=== PATIENT | female | born 1965 | race Caucasian/White ===

== ENCOUNTER 2018-05-14 09:41 | Emergency (ER) | payer OTHER ==
--- OUTSIDE RECORDS SUMMARY | 2018-05-14 09:43 | XMS REPORT | Clinical Summary ---
:1965 Author Organization [facility] Address [address] [place] [address] Care Team Providers Name Role Phone Nicholas Cuadra MD Primary Care Provider Allergies Active Allergy Reactions Severity Noted Date Comments Levofloxacin Other (See Comments) 07/06/2017 Eye swelling Current Medications Prescription Sig. Disp. Refills Start Date End Date Status REXULTI 1 mg tablet 03/03/2018 Active tablet levothyroxine (SYNTHROID, Take 100 mcg by Active LEVOXYL) 100 mcg tablet mouth daily. desvenlafaxine (PRISTIQ) Take 100 mg by Active 100 MG 24 hr tablet mouth daily. desvenlafaxine (PRISTIQ) Take 50 mg by Active 50 MG 24 hr tablet mouth daily. estrogens,conj/bazedoxife Take by mouth. Active ne (DUAVEE ORAL) ANALPRAM-HC 2.5-1 % Insert into the 30 g 1 07/06/2017 08/05/2017 rectal cream rectum 3 (three) times a day for 30 days. Active Problems Problem Noted Date Family history of heart disease 03/05/2018 SOB (shortness of breath) 03/05/2018 Abnormal EKG 03/05/2018 Hyperlipidemia 03/05/2018 Encounters Date Type Specialty Care Team Description 05/13/2018 Emergency Emergency Medicine Chani Shea Benzocaine adverse reaction, initial encounter (Primary Dx); MD Dain Anxiety 03/22/2018 Telephone Cardiology Bay Castillo MA Results (nuclear stress test) 03/21/2018 Orders Only Cardiology Adrianna, Family history of heart disease; SHANI Ellington Hyperlipidemia, unspecified hyperlipidemia type; SOB (shortness of breath); Abnormal EKG 03/15/2018 Telephone Cardiology Bay Castillo MA Results (calcium score) 03/12/2018 Hospital Encounter Procedural Deniz Lai Family history of heart disease; Cardiology MD Shefali Hyperlipidemia, unspecified hyperlipidemia type; SOB (shortness of breath); Abnormal EKG 03/05/2018 Office Visit Cardiology Deniz Lai SOB (shortness of breath) ( Primary Dx); MD Shefali Family history of heart disease; Hyperlipidemia, unspecified hyperlipidemia type; Abnormal EKG 07/06/2017 Office Visit General Surgery [place], Internal hemorrhoids without complication (Primary Dx); Mehreen Chi MD Thrombosed external hemorrhoid after 05/13/2017 Social History Tobacco Use Types Packs/Day Years Used Date Never Smoker Smokeless Tobacco: Never Used Alcohol Use Drinks/Week oz/Week Comments No Sex Assigned at Date Recorded Not on file Last Filed Vital Signs Vital Sign Reading Time Taken Blood Pressure 102/69 05/13/2018 12:51 PM CDT Pulse 71 05/13/2018 12:51 PM CDT Temperature 36.8 C (98.2 F) 05/13/2018 12:51 PM CDT Respiratory Rate 20 05/13/2018 12:51 PM CDT Oxygen Saturation 100% 05/13/2018 12:51 PM CDT Inhaled Oxygen Concentration - - Weight 74.8 kg (165 lb) 03/05/2018 11:10 AM CDT Height 162.6 cm (5' 4") 05/13/2018 12:47 PM CDT Body Mass Index 28.32 03/05/2018 11:10 AM CDT Plan of Treatment Health Maintenance Due Date Last Done Comments CERVICAL CANCER SCREENING 02/23/1985 BREAST CANCER SCREENING 02/23/2014 COLON CANCER SCREENING 02/23/2014 SHINGRIX VACCINE (#1) 02/23/2014 INFLUENZA VACCINE 05/08/2018 Procedures Procedure Name Priority Date/Time Associated Diagnosis Comments ECG 12-LEAD STAT 05/13/2018 1:44 Results for this PM CDT procedure are in the results section. URINE CULTURE STAT 05/13/2018 1:43 Results for this PM CDT procedure are in the results section. ESTIMATED GFR STAT 05/13/2018 1:34 Results for this PM CDT procedure are in the results section. URINALYSIS SCREEN AND STAT 05/13/2018 1:34 Results for this MICROSCOPY, WITH PM CDT procedure are in REFLEX TO CULTURE the results section. URINE DRUGS OF ABUSE STAT 05/13/2018 1:34 Results for this SCREEN PM CDT procedure are in the results section. SALICYLATE LEVEL STAT 05/13/2018 1:34 Results for this PM CDT procedure are in the results section. ACETAMINOPHEN LEVEL STAT 05/13/2018 1:34 Results for this PM CDT procedure are in the results section. ALCOHOL LEVEL, BLOOD STAT 05/13/2018 1:34 Results for this PM CDT procedure are in the results section. T4, FREE STAT 05/13/2018 1:34 Results for this PM CDT procedure are in the results section. THYROID STIMULATING STAT 05/13/2018 1:34 Results for this HORMONE PM CDT procedure are in the results section. COMPREHENSIVE STAT 05/13/2018 1:34 Results for this METABOLIC PANEL PM CDT procedure are in the results section. HC COMPLETE BLD COUNT STAT 05/13/2018 1:34 Results for this W/AUTO DIFF PM CDT procedure are in the results section. TROPONIN Timed 05/13/2018 1:34 Results for this PM CDT procedure are in the results section. CT CARDIAC CALCIUM Routine 03/12/2018 1:56 Family history of Results for this SCORE PM CDT heart disease procedure are in Hyperlipidemia, the results unspecified section. hyperlipidemia type SOB (shortness of breath) Abnormal EKG ECG 12-LEAD Routine 03/05/2018 10:17 Family history of Results for this AM CDT heart disease procedure are in Hyperlipidemia, the results unspecified section. hyperlipidemia type after 05/13/2017 Results ECG 12 lead (05/13/2018 1:44 PM)Only the most recent of2 resultswithin the time period is included. Ventricular rate 67 [facility] Atrial rate 67 [facility] TN interval 166 [facility] QRSD interval 74 [facility] QT interval 408 [facility] QTC interval 431 [facility] P axis 1 31 [facility] QRS axis 1 59 [facility] T wave axis 57 [facility] EKG impression Normal sinus rhythm-Normal ECG-In automated [facility] MUSE comparison with ECG of 05-MAR-2018 10:17,-No significant change was found- Performing Organization Address City/State/Zipcode Phone Number [facility] MUSE [address] [place] [address] Urine culture (05/13/2018 1:43 PM) Urine culture SEE COMMENTComment: Bacteriuria [facility] DEPARTMENT OF PATHOLOGY screen negative. AND GENOMIC MEDICINE Performing Organization Address City/[facility] Phone Number [facility] DEPARTMENT OF PATHOLOGY AND [address], [place] [id number] [place] [address] Urinalysis screen and microscopy, with reflex to culture (05/13/2018 1:34 PM) Specimen site Clean catch [facility] DEPARTMENT OF PATHOLOGY AND GENOMIC MEDICINE Color, UA Straw [facility] DEPARTMENT OF PATHOLOGY AND GENOMIC MEDICINE Appearance, UA Clear [facility] DEPARTMENT OF PATHOLOGY AND GENOMIC MEDICINE Specific gravity, UA 1.006 1.001 - 1.035 [facility] DEPARTMENT OF PATHOLOGY AND GENOMIC MEDICINE pH, UA 7.0 5.0 - 8.5 [facility] DEPARTMENT OF PATHOLOGY AND GENOMIC MEDICINE Protein, UA Negative Negative [facility] DEPARTMENT OF PATHOLOGY AND GENOMIC MEDICINE Glucose, UA Negative Negative [facility] DEPARTMENT OF PATHOLOGY AND GENOMIC MEDICINE Ketones, UA Negative Negative [facility] DEPARTMENT OF PATHOLOGY AND GENOMIC MEDICINE Bilirubin, UA Negative Negative [facility] DEPARTMENT OF PATHOLOGY AND GENOMIC MEDICINE Blood, UA Negative Negative [facility] DEPARTMENT OF PATHOLOGY AND GENOMIC MEDICINE Nitrite, UA Negative Negative [facility] DEPARTMENT OF PATHOLOGY AND GENOMIC MEDICINE Urobilinogen, UA <2.0 <2.0 [facility] DEPARTMENT OF PATHOLOGY AND GENOMIC MEDICINE Leukocyte esterase, UA Negative Negative [facility] DEPARTMENT OF PATHOLOGY AND GENOMIC MEDICINE Epithelial cells, UA <1 /HPF [facility] DEPARTMENT OF PATHOLOGY AND GENOMIC MEDICINE WBC, UA None seen 0 - 4 /HPF [facility] DEPARTMENT OF PATHOLOGY AND GENOMIC MEDICINE RBC, UA None seen 0 - 5 /HPF [facility] DEPARTMENT OF PATHOLOGY AND GENOMIC MEDICINE Bacteria, UA None seen None seen [facility] DEPARTMENT OF PATHOLOGY AND GENOMIC MEDICINE Yeast, UA None seen [facility] DEPARTMENT OF PATHOLOGY AND GENOMIC MEDICINE Yeast with pseudohyphae, UA None seen [facility] DEPARTMENT OF PATHOLOGY AND GENOMIC MEDICINE Specimen Urine Performing Organization Address City/[facility]/Zipcode Phone Number [facility] DEPARTMENT OF PATHOLOGY AND [address] [place] [id number] [facility] Estimated GFR (05/13/2018 1:34 PM) GFR Non Af Amer 65 mL/min/1.73 m2 [facility] DEPARTMENT OF PATHOLOGY AND GENOMIC MEDICINE GFR Af Amer 79 mL/min/1.73 m2 [facility] DEPARTMENT OF Comment: PATHOLOGY AND GENOMIC Chronic kidney disease: <60 mL/min/1.73m2 MEDICINE Kidney failure: <15 mL/min/1.73m2 The estimated GFR is calculated from the IDMS-traceable Modification of Diet in Renal Disease Equation. The accuracy of the calculation is poor when the creatinine is normal. Calculated values >90 mL/min/1.73m2 are not reported. This equation has not been validated in children (<18 years), women, the elderly (>70 years), or ethnic groups other than Caucasians and Americans. Specimen Plasma specimen Performing Organization Address City/[facility] Phone Number [facility] DEPARTMENT OF PATHOLOGY AND [address] [place] [address] Troponin (05/13/2018 1:34 PM) Troponin <0.30 0.00 - 0.30 ng/mL [facility] DEPARTMENT OF PATHOLOGY Comment: AND GENOMIC MEDICINE 0.30 - 1.49 ng/mlMay indicate increased risk of acute coronary syndrome. >=1.5 ng/mlConsistent with acute myocardial infarction. The diagnostic value of a single normal or non-diagnostic result is questionable.Serial samples at 2-6 hour intervals are required to rule out acute myocardial injury. Specimen Plasma specimen Performing Organization Address City/[facility] Phone Number [facility] DEPARTMENT OF PATHOLOGY AND [address] [place] [id number] [facility] Urine drugs of abuse screen (05/13/2018 1:34 PM) Amphetamine screen, urine Negative [facility] DEPARTMENT OF PATHOLOGY AND GENOMIC MEDICINE Barbiturate screen, urine Negative [facility] DEPARTMENT OF PATHOLOGY AND GENOMIC MEDICINE Benzodiazepine screen, Negative [facility] DEPARTMENT OF urine PATHOLOGY AND GENOMIC MEDICINE Cannabinoid screen, urine Negative [facility] DEPARTMENT OF PATHOLOGY AND GENOMIC MEDICINE Cocaine screen, urine Negative [facility] DEPARTMENT OF PATHOLOGY AND GENOMIC MEDICINE Methadone metabolite Negative [facility] DEPARTMENT OF (EDDP), urine PATHOLOGY AND GENOMIC MEDICINE Opiates screen, urine Negative [facility] DEPARTMENT OF PATHOLOGY AND GENOMIC MEDICINE Oxycodone screen, urine Negative [facility] DEPARTMENT OF PATHOLOGY AND GENOMIC MEDICINE Phencyclidine screen, urine Negative [facility] DEPARTMENT OF PATHOLOGY AND GENOMIC MEDICINE Tricyclic screen, urine Negative [facility] DEPARTMENT OF Comment: PATHOLOGY AND GENOMIC Drug screen minimum concentration of detectability MEDICINE Ustzvmnlohvy8462 ng/mL Barbiturates 200 ng/mL Bvaaxamjxdeioha347 ng/mL Eqsqwif702 ng/mL Eqgotxudz808 ng/mL Kqapzha927 ng/mL Htjdsibmf983 ng/mL Phencyclidine 25 ng/mL Riawbccpbpzn87 ng/mL Zpvlypubsp8435 ng/mL Negative test results indicates presumptive evidence of lack of clinically significant drug concentration in this urine specimen. Positive test results are presumptive evidence of clinically significant drug concentration in this urine specimen. Testing performed for medical purposes only. Specimen Urine Performing Organization Address City/State/Zipcode Phone Number [facility] DEPARTMENT OF PATHOLOGY AND [address] [place] [address] GENOMIC MEDICINE CBC with platelet and differential (05/13/2018 1:34 PM) WBC 8.45 4.50 - 11.00 k/uL [facility] DEPARTMENT OF PATHOLOGY AND GENOMIC MEDICINE RBC 4.09 (L) 4.20 - 5.50 m/uL [facility] DEPARTMENT OF PATHOLOGY AND GENOMIC MEDICINE HGB 12.8 12.0 - 16.0 g/dL [facility] DEPARTMENT OF PATHOLOGY AND GENOMIC MEDICINE HCT 38.2 37.0 - 47.0 % [facility] DEPARTMENT OF PATHOLOGY AND GENOMIC MEDICINE MCV 93.4 82.0 - 100.0 fL [facility] DEPARTMENT OF PATHOLOGY AND GENOMIC MEDICINE MCH 31.3 27.0 - 34.0 pg [facility] DEPARTMENT OF PATHOLOGY AND GENOMIC MEDICINE MCHC 33.5 31.0 - 37.0 g/dL [facility] DEPARTMENT OF PATHOLOGY AND GENOMIC MEDICINE RDW - SD 41.8 37.0 - 55.0 fL [facility] DEPARTMENT OF PATHOLOGY AND GENOMIC MEDICINE MPV 9.3 8.8 - 13.2 fL [facility] DEPARTMENT OF PATHOLOGY AND GENOMIC MEDICINE Platelet count 382 150 - 400 k/uL [facility] DEPARTMENT OF PATHOLOGY AND GENOMIC MEDICINE Nucleated RBC 0.00 /100 WBC [facility] DEPARTMENT OF PATHOLOGY AND GENOMIC MEDICINE Neutrophils 68.2 39.0 - 69.0 % [facility] DEPARTMENT OF PATHOLOGY AND GENOMIC MEDICINE Lymphocytes 25.4 25.0 - 45.0 % [facility] DEPARTMENT OF PATHOLOGY AND GENOMIC MEDICINE Monocytes 5.1 0.0 - 10.0 % [facility] DEPARTMENT OF PATHOLOGY AND GENOMIC MEDICINE Eosinophils 0.9 0.0 - 5.0 % [facility] DEPARTMENT OF PATHOLOGY AND GENOMIC MEDICINE Basophils 0.2 0.0 - 1.0 % [facility] DEPARTMENT OF PATHOLOGY AND GENOMIC MEDICINE Immature granulocytes 0.2Comment: 0.0 - 1.0 % [facility] DEPARTMENT OF "Immature PATHOLOGY AND GENOMIC granulocytes" MEDICINE (promyelocytes, myelocytes, metamyelocytes) Specimen Blood Performing Organization Address City/State/Zipcode Phone Number [facility] DEPARTMENT OF PATHOLOGY AND [address] [place] [address] Thyroid stimulating hormone (05/13/2018 1:34 PM) TSH 1.56 0.27 - 4.20 uIU/mL [facility] DEPARTMENT OF PATHOLOGY AND GENOMIC MEDICINE Specimen Plasma specimen Performing Organization Address [facility] Phone Number [facility] DEPARTMENT OF PATHOLOGY AND [address] [place] [address] T4, free (05/13/2018 1:34 PM) T4, free 1.8 (H) 0.9 - 1.7 ng/dL [facility] DEPARTMENT OF PATHOLOGY AND GENOMIC MEDICINE Specimen Plasma specimen Performing Organization Address [facility] Phone Number [facility] DEPARTMENT OF PATHOLOGY AND [address] [place] [address] Alcohol level, blood (05/13/2018 1:34 PM) Alcohol None Detected mg/dL [facility] DEPARTMENT OF PATHOLOGY Comment: AND GENOMIC MEDICINE Normal None Detected Legal Intoxication in [place]80 mg/dL (0.08%) - Whole Blood Toxic Xrschfhcdihvf513 mg/dL (0.2%) Potentially Msnhq010 - 500 mg/dL (0.35 - 0.5%) Alcohol percent None Detected % [facility] DEPARTMENT OF PATHOLOGY AND GENOMIC MEDICINE Specimen Plasma specimen Performing Organization Address [facility] Phone Number [facility] DEPARTMENT OF PATHOLOGY AND [address] [place] [address] Acetaminophen level (05/13/2018 1:34 PM) Acetaminophen level <15.0 10.0 - 30.0 ug/mL [facility] DEPARTMENT OF Comment: PATHOLOGY AND GENOMIC Therapeutic 10-30 ug/mL MEDICINE Possible Toxicity 150-200 ug/mL Probable Toxicity >200 ug/mL Specimen Plasma specimen Performing Organization Address [facility] Phone Number [facility] DEPARTMENT OF PATHOLOGY AND [address] [place] [address] Salicylate level (05/13/2018 1:34 PM) Salicylate <3.0 3.0 - 30.0 mg/dL [facility] DEPARTMENT OF PATHOLOGY AND GENOMIC MEDICINE Specimen Plasma specimen Performing Organization Address [facility] Phone Number [facility] DEPARTMENT OF PATHOLOGY AND [address] [place] [address] Comprehensive metabolic panel (05/13/2018 1:34 PM) Sodium 139 135 - 148 mEq/L [facility] DEPARTMENT OF PATHOLOGY AND GENOMIC MEDICINE Potassium 4.3 3.5 - 5.0 mEq/L [facility] DEPARTMENT OF PATHOLOGY AND GENOMIC MEDICINE Chloride 102 98 - 112 mEq/L [facility] DEPARTMENT OF PATHOLOGY AND GENOMIC MEDICINE CO2 23 (L) 24 - 31 mEq/L [facility] DEPARTMENT OF PATHOLOGY AND GENOMIC MEDICINE Anion gap 14@ANIO 7 - 15 mEq/L [facility] DEPARTMENT OF PATHOLOGY AND GENOMIC MEDICINE BUN 18 6 - 20 mg/dL [facility] DEPARTMENT OF PATHOLOGY AND GENOMIC MEDICINE Creatinine 0.9 0.5 - 0.9 mg/dL [facility] DEPARTMENT OF PATHOLOGY AND GENOMIC MEDICINE Glucose 93 65 - 99 mg/dL [facility] DEPARTMENT OF PATHOLOGY AND GENOMIC MEDICINE Calcium 9.1 8.3 - 10.2 mg/dL [facility] DEPARTMENT OF PATHOLOGY AND GENOMIC MEDICINE Protein 7.4 6.3 - 8.3 g/dL [facility] DEPARTMENT OF Comment: PATHOLOGY AND GENOMIC Notrees 4.6-7.0 g/dL MEDICINE 1 week 4.4-7.6 g/dL 7 months-1year5.1-7.3 g/dL 1-2 years5.6-7.5 g/dL >3 years6.0-8.0 g/dL 18-150 6.3-8.3 g/dL Albumin 4.0 3.5 - 5.0 g/dL [facility] DEPARTMENT OF PATHOLOGY AND GENOMIC MEDICINE A/G ratio 1.2 0.7 - 3.8 [facility] DEPARTMENT OF PATHOLOGY AND GENOMIC MEDICINE Alkaline phosphatase 59 35 - 104 U/L [facility] DEPARTMENT OF PATHOLOGY AND GENOMIC MEDICINE AST 20 10 - 35 U/L [facility] DEPARTMENT OF PATHOLOGY AND GENOMIC MEDICINE ALT 14 5 - 50 U/L [facility] DEPARTMENT OF PATHOLOGY AND GENOMIC MEDICINE Total bilirubin 0.3 0.0 - 1.2 mg/dL [facility] DEPARTMENT OF PATHOLOGY AND GENOMIC MEDICINE Specimen Plasma specimen Performing Organization Address City/State/Zipcode Phone Number [facility] DEPARTMENT OF PATHOLOGY AND [address] [place] [address] [facility] MEDICINE Ct cardiac calcium score (03/12/2018 1:56 PM) Narrative Performed At [facility] Nuclear Cardiology and Cardiac CT [address] [place] [address] [address] Calcium Scoring Report Pat.Name:Vinny BENDER.ID:[id number] St.Date: 03/12/2018Refer.MD:DENIZ LAI MD Exam Time: 1:49:00 PMStudy Type:CT Calcium Scoring Height:64inWeight: 163lb BSA: 1.79 m2 DOBAge:1964,53Y Sex: FEMALEHR: 68 bpm Nuclear Tech:RT Sandee(R)(CT) Pat. Stat.:Outpatient CPT - 4: Hunt SaturninoNuclear Event ID:[id number] Order ID:[id number] Procedures:Calcium Scoring Race:C SUMMARY: Technique: Sequential 3mm CT cuts were obtained through the chest using the Siemens Somatom Force CT scanner with ECG gating.Interactive image viewing and volumetric display and analysis were also performed.The CAC score was quantified using the Agatston scoring method. Non-contrast cardiac CT results are as follows: The total Coronary Artery Calcium Score (CACS) is 0 (ZERO). The non-contrast CT shows a normal cardiac size, no pericardial abnormalities, a normal aortic root of 3.3cm, a normal ascending thoracic aorta of 3.3cm and anormal descending thoracic aorta of 2.4cm.The left main and right coronary arteries appear to originate normally from the left and right sinus of Valsalva.The right coronary artery is dominant. Non-Cardiac Findings: None. Conclusion: Normal non-contrast cardiac CT. The coronary artery calcium score indicates no significant coronary atherosclerosis and a <0.3% risk per year of a major cardiac event.A CACS of zero is observed in 74% of women at age 54 years. Recommendations: (1) Continue primary preventative strategies. Signed 03/12/2018 06:45 PM Wes Cates MD Procedure Note Interface, Radiology Results In - 03/12/2018 6:46 PM [facility]T Nuclear Cardiology and Cardiac CT [address] [place] [address] CT Calcium Scoring Report Pat.Name: ANA BENDER Pat.ID: [id number] .Date: 03/12/2018 Refer.MD: DENIZ LAI MD Exam Time: 1:49:00 PM Study Type:CT Calcium Scoring Height: 64in Weight: 163lb BSA: 1.79 m2 Age: 4 1965,53Y Sex: FEMALE HR: 68 bpm Nuclear Tech:RT Sandee([place])(CT) Pat. Stat.:Outpatient CPT - 4: Hunt [employer] Event ID:[id number] Order ID: [id number] Procedures:Calcium Scoring Race: C SUMMARY: Technique: Sequential 3mm CT cuts were obtained through the chest using the Siemens Somatom Force CT scanner with ECG gating. Interactive image viewing and volumetric display and analysis were also performed. The CAC score was quantified using the Agatston scoring method. Non-contrast cardiac CT results are as follows: The total Coronary Artery Calcium Score (CACS) is 0 (ZERO). The non-contrast CT shows a normal cardiac size, no pericardial abnormalities, a normal aortic root of 3.3cm, a normal ascending thoracic aorta of 3.3cm and a normal descending thoracic aorta of 2.4cm. The left main and right coronary arteries appear to originate normally from the left and right sinus of Valsalva. The right coronary artery is dominant. Non-Cardiac Findings: None. Conclusion: Normal non-contrast cardiac CT. The coronary artery calcium score indicates no significant coronary atherosclerosis and a <0.3% risk per year of a major cardiac event. A CACS of zero is observed in 74% of women at age 54 years. Recommendations: (1) Continue primary preventative strategies. Signed 03/12/2018 06:45 PM Wes Cates MD Performing Organization Address City/State/Zipcode Phone Number [facility] [address] [place] [address] after 05/13/2017 Insurance Payer Benefit Plan / Group Subscriber ID Type Phone Address [employer] PPO xxxxxxxxxxx PPO Work: Bassem SUTTON MD [phone] [place] [id number] Home:
[2018-05-14] MEDS ORDERED: NA CHLORIDE 0.9% 1,000 ML ONE (10:38)
[2018-05-14] MEDS ORDERED: DIAZEPAM 10 MG/2 ML INJ SYRINGE ONE (10:38)
--- NOTE | 2018-05-14 11:59 | ER ---
Nurse's Notes [facility] Name: Ana Dudley Age: 53 yrs Sex: Female : 1965 Arrival Date: 05/14/2018 Time: 09:44 Bed 17 Private MD: Gregorio Cuadra B Diagnosis: Anxiety disorder, unspecified;Hyperventilation Presentation: 05/14 09:51 Presenting complaint: Patient states: Anxiety x 1 month, was taking Xanax every night ss to help, but recently had a medication change to Prozac and given a Valium last night, but reports she is shaking and her anxiety is much worse. Transition of care: patient was not received from another setting of care. Onset of symptoms is unknown. Risk Assessment: Do you want to hurt yourself or someone else? Patient reports no desire to harm self or others. Initial Sepsis Screen: Does the patient meet any 2 criteria? No. Patient's initial sepsis screen is negative. Does the patient have a suspected source of infection? No. Patient's initial sepsis screen is negative. Care prior to arrival: None. 09:51 Method Of Arrival: Ambulatory ss 09:51 Acuity: INGRID 3 ss Historical: - Allergies: 09:56 Levaquin; ss - PMHx: 09:56 Anxiety; ss - PSHx: 09:56 back; R hip repair; ss - Immunization history:: Adult Immunizations up to date. - Social history:: Smoking status: Patient/guardian denies using tobacco. - Ebola Screening: : Patient denies exposure to infectious person Patient denies travel to an Ebola-affected area in the 21 days before illness onset. - Family history:: not pertinent. - Hospitalizations: : No recent hospitalization is reported. Screenin:28 Abuse screen: Denies threats or abuse. Denies injuries from another. Nutritional aj1 screening: No deficits noted. Tuberculosis screening: No symptoms or risk factors identified. 13:03 Fall Risk None identified. aj1 Assessment: 10:28 General: Appears in no apparent distress. uncomfortable, Behavior is cooperative, aj1 anxious, restless. Pain: Complains of pain in generalized body aches. Neuro: Level of Consciousness is awake, alert, obeys commands. Cardiovascular: Patient's skin is warm and dry. Respiratory: Airway is patent Respiratory effort is even, unlabored, Respiratory pattern is regular, symmetrical. GI: No signs and/or symptoms were reported involving the gastrointestinal system. : No signs and/or symptoms were reported regarding the genitourinary system. EENT: No signs and/or symptoms were reported regarding the EENT system. Derm: No signs and/or symptoms reported regarding the dermatologic system. Skin is pink, warm \T\ dry. normal. Musculoskeletal: No signs and/or symptoms reported regarding the musculoskeletal system. Circulation, motion, and sensation intact. 11:34 Reassessment: Patient appears in no apparent distress at this time. No changes from aj1 previously documented assessment. Patient and/or family updated on plan of care and expected duration. Pain level reassessed. Patient is alert, oriented x 3, equal unlabored respirations, skin warm/dry/pink. 12:20 Reassessment: Patient's left to go get her some clothes, patient states that he aj1 should be back soon. Notified patient that we cannot discharge her until she has someone to drive her home. Patient verbalized understanding. 13:02 Reassessment: Patient's is back at bedside. aj1 Vital Signs: 09:56 BP 119 / 69; Pulse 87; Resp 16; Temp 97.1(TE); Pulse Ox 99% on R/A; Weight 74.84 kg; Height 5 ft. 4 in. (162.56 cm); Pain 0/10; 11:34 BP 110 / 77; Pulse 68; Resp 18; Pulse Ox 98% on R/A; aj1 12:21 BP 119 / 76; Pulse 72; Resp 18; Pulse Ox 99% on R/A; aj1 13:02 BP 118 / 77; Pulse 65; Resp 18; Pulse Ox 99% ; aj1 09:56 Body Mass Index 28.32 (74.84 kg, 162.56 cm) ED Course: 09:44 Patient arrived in ED. sb2 09:44 Gregorio Cuadra MD is Private Physician. sb2 09:55 Triage completed. ss 09:56 Caleb Taveras MD is Attending Physician. rn 09:56 Arm band placed on right wrist. ss 10:16 Nat Tejeda RN is Primary Nurse. aj1 10:27 Inserted saline lock: 20 gauge in right antecubital area, using aseptic technique. aj1 10:28 Patient has correct armband on for positive identification. Bed in low position. Call aj1 light in reach. Side rails up X 1. 10:28 No provider procedures requiring assistance completed. aj1 13:03 IV discontinued, intact, bleeding controlled, No redness/swelling at site. Pressure aj1 dressing applied. Administered Medications: 10:42 Drug: NS 0.9% 1000 ml Route: IV; Rate: 1000 ml; Site: right antecubital; aj1 12:00 Follow up: IV Status: Completed infusion; IV Intake: 1000ml aj1 10:43 Drug: Valium 5 mg Route: IVP; Site: right antecubital; aj1 11:59 Drug: Valium 5 mg Route: IVP; Site: right antecubital; aj1 13:04 Follow up: Response: No adverse reaction aj1 Intake: 12:00 IV: 1000ml; Total: 1000ml. aj1 Outcome: 11:59 Discharge ordered by . rn 13:03 Discharged to home ambulatory. aj1 13:03 Condition: good 13:03 Discharge instructions given to patient, Instructed on discharge instructions, follow up and referral plans. no drinking with medication, no driving heavy equipment, medication usage, Demonstrated understanding of instructions, follow-up care, medications, Prescriptions given X 1. 13:04 Patient left the ED. aj1 Signatures: Nat Tejeda RN RN aj1 Caleb Taveras MD MD rn Smirch, Shelby, RN RN ss Billeau, Sheri sb2 Corrections: (The following items were deleted from the chart) 10:43 10:42 Valium 5 mg IVP in right antecubital aj1 aj1
--- NOTE | 2018-05-14 11:59 | EDPHYS ---
Physician Documentation [facility] Name: Ana Dudley Age: 53 yrs Sex: Female : 1965 Arrival Date: 05/14/2018 Time: 09:44 Bed 17 Private MD: Gregorio Cuadra B ED Physician Caleb Taveras HPI: 05/14 11:56 This 53 yrs old Female presents to ER via Ambulatory with complaints of rn Anxiety, Withdrawal. 11:56 Reports got taken off of her xanax recently, switched to prozac, and not helping, rn feeling really anxious, given low dose valium taper by pcp, just started it, 2 doses, states not helping, no suicidal/homicidal thoughts. . Onset: The symptoms/episode began/occurred 4 day(s) ago. Severity of symptoms: At their worst the symptoms were moderate in the emergency department the symptoms are unchanged. The patient has not experienced similar symptoms in the past. The patient has been recently seen by a physician:. Historical: - Allergies: 09:56 Levaquin; ss - PMHx: 09:56 Anxiety; ss - PSHx: 09:56 back; R hip repair; ss - Immunization history:: Adult Immunizations up to date. - Social history:: Smoking status: Patient/guardian denies using tobacco. - Ebola Screening: : Patient denies exposure to infectious person Patient denies travel to an Ebola-affected area in the 21 days before illness onset. - Family history:: not pertinent. - Hospitalizations: : No recent hospitalization is reported. ROS: 11:56 Constitutional: Negative for fever, chills, and weight loss, Eyes: Negative for injury, rn pain, redness, and discharge, Neck: Negative for injury, pain, and swelling, Cardiovascular: Negative for chest pain, and edema, Respiratory: Negative for shortness of breath, cough, wheezing, and pleuritic chest pain, Abdomen/GI: + nausea, no abd pain MS/Extremity: Negative for injury and deformity, Skin: Negative for injury, rash, and discoloration, Neuro: Negative for seizure. Exam: 11:56 Constitutional: This is a well developed, well nourished patient who is awake, alert, rn appears anxious Head/Face: Normocephalic, atraumatic. Eyes: Pupils equal round and reactive to light, extra-ocular motions intact. Lids and lashes normal. Conjunctiva and sclera are non-icteric and not injected. Cornea within normal limits. Periorbital areas with no swelling, redness, or edema. ENT: Nares patent. No nasal discharge, no septal abnormalities noted. No tongue fasciculations. Oropharynx with no redness, swelling, or masses, exudates, or evidence of obstruction, uvula midline. Mucous membranes moist. Neck: Trachea midline, no thyromegaly or masses palpated, and no cervical lymphadenopathy. Supple, full range of motion without nuchal rigidity, or vertebral point tenderness. No Meningismus. Cardiovascular: Regular rate and rhythm with a normal S1 and S2. No gallops, murmurs, or rubs. Normal PMI, no JVD. No pulse deficits. Respiratory: Lungs have equal breath sounds bilaterally, clear to auscultation and percussion. No rales, rhonchi or wheezes noted. No increased work of breathing, no retractions or nasal flaring. Abdomen/GI: Soft, non-tender, with normal bowel sounds. No distension or tympany. No guarding or rebound. No evidence of tenderness throughout. MS/ Extremity: Pulses equal, no cyanosis. Neurovascular intact. Full, normal range of motion. Equal circumference. Neuro: Awake and alert, GCS 15, oriented to person, place, time, and situation. Cranial nerves II-XII grossly intact. Motor strength 5/5 in all extremities. Sensory grossly intact. No tremor. Vital Signs: 09:56 BP 119 / 69; Pulse 87; Resp 16; Temp 97.1(TE); Pulse Ox 99% on R/A; Weight 74.84 kg; ss Height 5 ft. 4 in. (162.56 cm); Pain 0/10; 11:34 BP 110 / 77; Pulse 68; Resp 18; Pulse Ox 98% on R/A; aj1 12:21 BP 119 / 76; Pulse 72; Resp 18; Pulse Ox 99% on R/A; aj1 13:02 BP 118 / 77; Pulse 65; Resp 18; Pulse Ox 99% ; aj1 09:56 Body Mass Index 28.32 (74.84 kg, 162.56 cm) MDM: 09:56 Patient medically screened. rn 11:56 Differential Diagnosis anxiety, hyperventilation, benzo withdrawal. Data reviewed: rn vital signs, nurses notes, and as a result, I will discharge patient. Counseling: I had a detailed discussion with the patient and/or guardian regarding: the historical points, exam findings, and any diagnostic results supporting the discharge/admit diagnosis, the need for outpatient follow up, to return to the emergency department if symptoms worsen or persist or if there are any questions or concerns that arise at home. Response to treatment: the patient's symptoms have markedly improved after treatment, and as a result, I will discharge patient. Special discussion: I discussed with the patient/guardian in detail that at this point there is no indication for admission to the hospital. It is understood, however, that if the symptoms persist or worsen the patient needs to return immediately for re-evaluation. Based on the history and exam findings, there is no indication for further emergent testing or inpatient evaluation. I discussed with the patient/guardian the need to see the primary care provider for further evaluation of the symptoms. I discussed with the patient/guardian the need to see the psychiatrist for further evaluation of the symptoms. ED course: Will prescribe 5mg tablets of valium, for 5 days, then can taper to 2mg daily for 7 days, which patient has the 2mg tablets. . 05/14 10:16 Order name: IV Start; Complete Time: 10:27 rn Administered Medications: 10:42 Drug: NS 0.9% 1000 ml Route: IV; Rate: 1000 ml; Site: right antecubital; aj1 12:00 Follow up: IV Status: Completed infusion; IV Intake: 1000ml aj1 10:43 Drug: Valium 5 mg Route: IVP; Site: right antecubital; aj1 11:59 Drug: Valium 5 mg Route: IVP; Site: right antecubital; aj1 13:04 Follow up: Response: No adverse reaction aj1 Disposition: 05/14/18 11:59 Discharged to Home. Impression: Anxiety disorder, unspecified, Hyperventilation. - Condition is Stable. - Discharge Instructions: Hyperventilation, Generalized Anxiety Disorder. - Prescriptions for Valium 5 mg Oral Tablet - take 1 tablet by ORAL route once daily As needed; 5 tablet. - Medication Reconciliation Form, Thank You Letter, Antibiotic Education, Prescription Opioid Use form. - Follow up: Private Physician; When: As needed; Reason: Recheck today's complaints, Re-evaluation by your physician. - Problem is an ongoing problem. - Symptoms have improved. Signatures: Nat Tejeda RN RN aj1 Caleb Taveras MD MD rn Smirch, Shelby, RN RN ss Corrections: (The following items were deleted from the chart) 13:04 11:59 05/14/2018 11:59 Discharged to Home. Impression: Anxiety disorder, unspecified; aj1 Hyperventilation. Condition is Stable. Forms are Medication Reconciliation Form, Thank You Letter, Antibiotic Education, Prescription Opioid Use. Follow up: Private Physician; When: As needed; Reason: Recheck today's complaints, Re-evaluation by your physician. Problem is an ongoing problem. Symptoms have improved. rn
== END 2018-05-14 13:04 | disposition home or self-care (01) ==
LOC: ER 09:41
DX: R06.4 Hyperventilation (principal); Z88.1 Allergy status to other antibiotic agents
CPT/HCPCS: 96360; 99283; J3360; J7030

== ENCOUNTER 2019-07-14 07:54 | Day surgery (SDC) | payer OTHER ==
[2019-07-11 11:27] LABS: Absolute Lymphocytes (CBC) 1.8 K/uL (0.7-4.9); Basophils % 0.3 % (0-1.3); Hematocrit 37.4 % (36.0-45.0); Lymphocytes % 28.9 % (15.3-44.8); MPV 7.2 fL (7.6-11.3); RBC Red Blood Cell Count 4.05 M/uL (3.86-4.86)
[2019-07-11 11:30] LABS: Protime INR 0.99
[2019-07-11 11:49] LABS: Potassium 4.2 mmol/L (3.5-5.1)
--- NOTE | 2019-07-12 14:12 | RAD REPORT ---
EXAM DESCRIPTION: Carol Bearden (2 Views)07/12/2019 8:32 am CLINICAL HISTORY: Preop for cardiac catheterization COMPARISON: 2017 FINDINGS: Due to technical issues at the hospital the exam could not be dictated after completion. It is now available for dictation The lungs appear clear of acute infiltrate. The heart is normal size IMPRESSION: No acute abnormalities displayed
[2019-07-14] MEDS ORDERED: NA CHLORIDE 0.9% 500 ML ONE (08:10)
[2019-07-14] MEDS ORDERED: ATROPINE SULF 1 MG/10 ML SYR IV ONE ×2 (09:19→10:02)
[2019-07-14] MEDS ORDERED: HEPA 1000U/500MLS 2,000 UNIT/1,000 ML BAG IV ONE (10:00)
[2019-07-14] MEDS ORDERED: FENTANYL CITR 100 MCG/2 ML ONE (10:01)
[2019-07-14] MEDS ORDERED: MIDAZOLAM HCL 2 MG/2 ML INJ ONE ×3 (10:01→10:26)
[2019-07-14] MEDS ORDERED: HEPARIN 5000 UNIT/ML 1 ML VIAL ONE (10:01)
[2019-07-14] MEDS ORDERED: NICARDIPINE HCL 25 MG/10 ML IV ONE (10:02)
[2019-07-14] MEDS ORDERED: NA CHLORIDE 0.9% 0 ML ONE (10:22)
[2019-07-14] MEDS ORDERED: HEPA 1000U/500MLS 1,000 UNIT/500 ML BAG IV ONE (10:44)
[2019-07-14 14:05] VITALS: O2SAT 97
[2019-07-14 14:37] VITALS: BP 118/59; TEMP 98.2
--- NOTE | 2019-07-14 22:08 | OP ---
Surgeon: Ghassan Vergara MD Newspaper Vendor: Jessika Frey. Identification: A 54-year-old woman. Procedure: Left heart catheterization, coronary and left ventricular angiography. Findings: The patient has normal coronary arteries, normal ejection fraction, borderline left ventri cular end-diastolic pressure, otherwise all normal pressures. Procedure In Detail: The patient was brought to the cardiac labor delivery rn in a fasting state. She had an abnormal Cardiolite stress test. She gave us informed consent. She was sedated with Versed and fen tanyl, titrated to an adequate level of sedation. Prepared and draped in the usual sterile fashion. Right radial approach was used. Tissues close to the right radial artery were anesthetized with 2 m L of 1% lidocaine. The artery was entered using a 21-gauge needle, cannulated with a 0.021 inch diam eter guidewire and then the modified Seldinger technique was used to place a 5/6-Macedonian Terumo radial sheath. The sheath was flushed and a radial cocktail was given consisting of nicardipine, heparin, and nitroglycerin. We guided a TIG catheter by Plumbrjj into the ascending aorta using a Veniti Glidew monica with a short radius J-tip and fluoroscopy. Once in place, the TIG catheter was adequate to angio gram the right coronary, left coronary, and left ventricle. At the end of the procedure, the TIG cat heter was straightened with a J-wire removed. The sheath was removed and a TR band was used to close the arteriotomy. Estimated Blood Loss: 5 mL. Complications: None. STEPHANE/JACQUES Voice ID: [id number] Report ID: [id number]
== END 2019-07-14 14:30 | disposition home health service (06) ==
LOC: CCL 07:54
PROVIDERS: ATTEND Internal Medicine
DX: R94.39 Abnormal result of other cardiovascular function study (principal); I20.8 Other forms of angina pectoris; E78.2 Mixed hyperlipidemia; E03.9 Hypothyroidism, unspecified; Z87.891 Personal history of nicotine dependence; Z88.3 Allergy status to other anti-infective agents; Z82.49 Family history of ischemic heart disease and other diseases of the circulatory system
CPT/HCPCS: 85025; 80048; 36415; 85610; 85730; 71046; 93458; C1893; J1644; J2250 ×2; J3010; J7040; J0583

== ENCOUNTER 2019-09-10 08:24 | Day surgery (SDC) | payer OTHER ==
[~2019-09-10 08:24] MED LIST: Ringers Lactate 1,000 ML IV SCH
[2019-09-10] MEDS ORDERED: Ringers Lactate 1,000 ML IV ONE (08:48)
[2019-09-10 08:51] LABS: Specific Gravity >= 1.030 (1.005-1.030)
[2019-09-10] MEDS ORDERED: LIDOCAINE 1% W/EPI 1:100,000 MDV 20 ML VIAL ONE ×2 (09:01→09:23)
[2019-09-10 09:05] VITALS: BP 114/74; TEMP 97.8; O2SAT 97
[2019-09-10] MEDS ORDERED: NA CHLORIDE 0.9% 1,000 ML ONE (09:23)
[2019-09-10] MEDS ORDERED: MIDAZOLAM HCL 2 MG/2 ML INJ ONE ×2 (09:28→09:45)
[2019-09-10] MEDS ORDERED: FENTANYL CITR 100 MCG/2 ML ONE (09:45)
[2019-09-10] MEDS ORDERED: PROPOFOL 200 MG/20 ML VIAL IV ONE (09:45)
[2019-09-10] MEDS ORDERED: LIDOCAINE 1% MPF 5 ML VIAL ONE (09:45)
[2019-09-10] MEDS ORDERED: KETOROLAC 30 MG/ML INJ ONE (09:53)
[2019-09-10] MEDS ORDERED: ONDANSETRON 4 MG/2 ML VIAL ONE (10:02)
--- NOTE | 2019-09-10 21:22 | OP ---
Date of Procedure: 09/10/2019 Surgeon: Minal Mccormack MD Postoperative Diagnosis: Postmenopausal bleeding, the patient on hormone therapy. Postoperative Diagnosis: Postmenopausal bleeding, the patient on hormone therapy. Procedure Performed: Hysteroscopy, D and C. Anesthesia: MAC plus paracervical block. Specimens: Endometrial curettings, which were very scant. Findings: Cavity empty, endometrium very thin, no irregular lining. No intracavitary lesions. Complications: No complications. Drains: No drains. Condition: Stable. Indications: The patient is a 54-year-old on hormone therapy, first episode of postmenopausal bleedi ng evaluate the transvaginal ultrasound. The stripe thickness was 5.5 mm, so needed endometrial samp ling. The patient has a long history of anxiety and did not want to have an office procedure as she would be able to tolerate the pain and anxiety of the procedure itself. So, discussed about the opti ons of having a blind biopsy with an endometrial pattern versus hospital based hysteroscopy. Then, s he was consented for the hospital hysteroscopy because cavity evaluation probably would be most usefu l in a patient like her. After re-consenting her in the preop, she was taken back to the OR, placed in a supine fashion on the operating table after MAC was given, she was placed in dorsal lithotomy po sition. Speculum was used to expose the cervix. Anterior lip injected with 1% lidocaine mixed with 1:100,000 epinephrine, 7 mL injected here and similar amount at 4 o'clock and 8 o'clock positions of the cervicovaginal junction for a paracervical block. Then prep x3 with Betadine was done. Anterior lip grasped with 2 Allis clamps. Vance speculum used, 30-degree lens, SlimLine hysteroscope was used and normal saline for distention. Cervical canal was traversed under direct vision through the sten osis. The external os had to be opened up for the tip of a hemostat before I could insert the scope. Then once the uterine cavity was entered, there was unremarkable endometrial lining, no intracavita ry lesions. Scope pulled out. The cervix dilated to 14-Mozambican and #2 curette was used to perform th e curettings. There was thick cervical mucus and cervical canal. This was very difficult to retriev e the endometrial specimen, however attempt was made to remove the mucus and retrieve the curettings. Once the entire cavity globally was curetted, the sample was handed out for permanent pathology. I nstruments removed. Instrument and sponge counts were correct at the end of the case. The patient w as recovered from anesthesia and taken to the PACU in stable condition. She will follow up with me i n 1 week. Most likely if the endometrial curettings are rather scant or negative, either way I would continue the hormone therapy with careful observation with excellent transvaginal ultrasound for end ometrial lining evaluation. No other additional risk factors for uterine cancer present in this pedro ent. She will follow up with us in 1 week for her pathology risk. ELOISE Voice ID: [id number] Report ID: [id number]
== END 2019-09-10 11:00 | disposition home or self-care (01) ==
LOC: OR 08:24
PROVIDERS: ATTEND Obstetrics & Gynecology
PROC: 0UJD8ZZ Inspection of Uterus and Cervix, Via Natural or Artificial Opening Endoscopic (ICD-10-PCS; 2019-09-10)
PROC: 0UDB7ZX Extraction of Endometrium, Via Natural or Artificial Opening, Diagnostic (ICD-10-PCS; principal; 2019-09-10 09:30)
DX: N95.0 Postmenopausal bleeding (principal); N95.1 Menopausal and female climacteric states; E03.9 Hypothyroidism, unspecified; F41.9 Anxiety disorder, unspecified; F33.1 Major depressive disorder, recurrent, moderate; Z88.3 Allergy status to other anti-infective agents; M79.7 Fibromyalgia
CPT/HCPCS: 81025; 88305; 58558; J2704; J2250 ×2; J3010; J7120; J7030; J2405

== ENCOUNTER → 2020-10-06 | Day surgery (SDC) | payer OTHER ==
--- OUTSIDE RECORDS SUMMARY | 2020-10-06 09:41 | XMS REPORT | Clinical Summary ---
:1965 Author Organization [employer] Address [address] [place] [address] Care Team Providers Name Role Phone Gregorio Cuadra MD Primary Care Provider Allergies Active Allergy Reactions Severity Noted Date Comments Levofloxacin Other (See Comments) 07/06/2017 Eye swe lling Medications Medication Sig Dispensed Refills Start Date End Date Status REXULTI 1 mg tablet 0 03/03/2018 Active tablet levothyroxine (SYNTHROID, Take 100 mcg by 0 Active LEVOXYL) 100 mcg tablet mouth daily. desvenlafaxine (PRISTIQ) Take 100 mg by 0 Active 100 MG 24 hr tablet mouth daily. desvenlafaxine (PRISTIQ) Take 50 mg by 0 Active 50 MG 24 hr tablet mouth daily. estrogens,conj/bazedoxife Take by mouth. 0 Active ne (DUAVEE ORAL) Active Problems Problem Noted Date Family history of heart disease 03/05/2018 SOB (shortness of breath) 03/05/2018 Abnormal EKG 03/05/2018 Hyperlipidemia 03/05/2018 Surgical History Surgery Date Site/Laterality Comments BACK SURGERY HIP SURGERY Medical History Medical History Date Comments Depression Anxiety Disease of thyroid gland Social History Tobacco Use Types Packs/Day Years Used Date Never Smoker Smokeless Tobacco: Never Used Alcohol Use Drinks/Week oz/Week Comments No Sex Assigned at Date Recorded Not on file Last Filed Vital Signs Not on file Plan of Treatment Health Maintenance Due Date Last Done Comments COVID-19 VACCINE (#1) 1980 CERVICAL CANCER SCREENING 02/23/1985 BREAST CANCER SCREENING 02/23/2014 COLONOSCOPY SCREENING 02/23/2014 SHINGLES VACCINES (#1) 02/23/2014 INFLUENZA VACCINE 05/08/2020 Results Not on fileafter 10/06/2019 (Work) Advance Directives For more information, please contact: [phone] Type Date 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
--- OUTSIDE RECORDS SUMMARY | 2020-10-06 09:41 | XMS REPORT | Continuity of Care Document ---
:1965 Author Organization [facility] t Address [address] [place] [address] Care Team Providers Name Role Phone Yoseph Cuadra MD Primary Care Physician LIZZIE Attending Clinician Unavailable Problems Condition Condition Condition Status Onset Resolution Last Treating Co mments Source Name Details Category Date Date Treatment Clinician Date Family Family Disease Active [place] history of history of 5-29 [facility] heart heart 00:00: st disease disease 00 SOB SOB Disease Active [place] (shortness (shortness 5-29 [facility] of breath) of breath) 00:00: st 00 Abnormal Abnormal Disease Active [place] on EKG EKG 03-05 Methodi 00:00: st 00 Hyperlipid Hyperlipid Disease Active [place] emia emia 03-05 [facility] 00:00: st 00 Normal Normal Problem Active [facility] routine routine ity of physical physical [place] examinatio examinatio Ph ysici n n ans Acute Acute Problem Active [facility] bursitis bursitis ity of of right of right [place] shoulder shoulder Physic i ans 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 it y of t of right t of right [place] shoulder shoulder Physic i ans Acute Acute Problem Active [facility] cervical cervical ity of radiculopa radiculopa [place] thy thy Physici ans Nontraumat Nontraumat Problem Active [facility] nivers [facility] it[facility] of incomplete incomplete [place] tear of tear of Physici right right ans rotator rotator cuff cuff Acute Acute Problem Active [facility] bursitis bursitis ity of of left of left [place] shoulder shoulder Physic i ans 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 it y of s s [place] [facility] ans Allergies, Adverse Reactions, Alerts Allergy Allergy Status Severity Reaction(s) Onset Inactive Treating Comm ents Source Name Type Date Date Clinician Hilton Cantrellensi Active Other (See Eye Ho trae britt ty to Comments) 07-06 swelling Metho di adverse 00:00: st reaction 00 s to drug Social History Social Habit Start Date Stop Date Quantity Comments Source Sex Assigned At [facility] ethodist Tobacco use and 2018-05-13 2018-05-13 Never used [facility] ethodist exposure 00:00:00 00:00:00 Alcohol intake 2018-05-13 2018-05-13 Current [facility] thodist 00:00:00 00:00:00 non-drinker of alcohol (finding) Smoking Status Start Date Stop Date Source Never smoker [place] Methodis t Medications Ordered Filled Start Stop Current Ordering Indication Dosage Frequency Signature Comments Components Source Medication Medication Date Date Medication? Clinician (SIG) Name Name estrogens,c Yes Take by Ale gonzalez onj/bazedox 5-29 mouth. Method i ifene 11:13: st (DUAVEE 41 ORAL) levothyroxi Yes 100ug QD Take 100 [place] ne 5-29 mcg by [facility] (SYNTHROID, 11:12: mouth st LEVOXYL) 49 daily. 100 mcg tablet desvenlafax Yes 100mg QD Take 100 [place] ine 5-29 mg by [facility] (PRISTIQ) 11:12: mouth st 100 MG 24 49 daily. hr tablet desvenlafax Yes 50mg QD Take 50 mg [place] ine 5-29 by mouth [facility] (PRISTIQ) 11:12: daily. st 50 MG 24 hr 49 tablet REXULTI 1 Yes [place] mg tablet 5-27 [facility] tablet 00:00: st 00 Procedures Procedure Date / Time Performed Performing Clinician Trina e MR Shoulder w 2020-09-07 00:00:00 [facility] [place] contrast [id number] [facility] MRI Spine cervical wo 2020-09-07 00:00:00 [facility] contrast [id number] Physicians MRI Spine thoracic wo 2020-09-07 00:00:00 [facility] contrast [id number] Physicians MR Shoulder w 2020-05-27 00:00:00 [facility] [place] contrast bilat [id number] Physicians MRI Spine cervical wo 2020-04-30 00:00:00 [facility] contrast [id number] Physicians MR Shoulder w 2020-04-30 00:00:00 [place] [facility] contrast bilat [id number] Physicians MR Scapula wo 2020-04-30 00:00:00 [place] [facility] [place] contrast [id number] [facility] Plan of Care Planned Activity Planned Date Details Comments Source Future Scheduled 2020-05-08 INFLUENZA VACCINE [place] [facility] 00:00:00 [code = INFLUENZA VACCINE] Future Scheduled 2014-02-23 BREAST CANCER [place] [facility] Test 00:00:00 SCREENING [code = BREAST CANCER SCREENING] Future Scheduled 2014-02-23 COLONOSCOPY SCREENING [place] [facility] 00:00:00 [code = COLONOSCOPY SCREENING] Future Scheduled 2014-02-23 SHINGLES VACCINES [place] [facility] 00:00:00 (#1) [code = SHINGLES VACCINES (#1)] Future Scheduled 1985-02-23 Screening for [place] [facility] 00:00:00 malignant neoplasm of cervix (procedure) [code = 493808099] Future Scheduled 1980 COVID-19 VACCINE (#1) [place] [facility] 00:00:00 [code = COVID-19 VACCINE (#1)] Encounters Start End Encounter Admission Attending Care Care Encounter Source Date/Time Date/Time Type Type Clinicians Facility Department ID 2020-09-07 2020-09-07 [facility] [id number] [facility] 13:30:00 13:30:00 t; SANCHEZ SAMUEL M.D. - Shilpi Monsalve M.D. [place] [facility] 2020-04-30 2020-04-30 [facility] [id number] [facility] 14:30:00 14:30:00 t; SANCHEZ SAMUEL M.D. - Shilpi Monsalve M.D. [place] [facility] Results Test Description Test Time Test Comments Results Result Sour e Comments [U] XRAY SHOULDER 2020-04-30 Images [facility] ity of MIN 2 VWS RIGHT 15:17:00 acquired, not [place] [id number] reported on Physicians this accession number.
--- NOTE | 2020-10-06 11:42 | RAD REPORT ---
EXAM DESCRIPTION: US - Follow Up [facility] - 10/06/2020 11:04 am CLINICAL HISTORY: Breast mass. COMPARISON: September 09, 2020 FINDINGS: The patient was referred for an ultrasound-guided guided core biopsy of a 6 mm spiculated right breast mass. The patient reports that the palpable area has decreased in size over time. On tod ay's ultrasound the hypoechoic area within the upper-outer quadrant could not clearly be delineated in two views. It appears to blend in with the surrounding tissue. On today's exam it has less of an a ppearance of a mass than on the prior ultrasound. IMPRESSION: The palpable area within the upper-outer quadrant of the right breast has decreased in s ize over time. On the current ultrasound the hypoechoic area has less of an appearance of a worrisome mass. This area probably is benign. Consequently the biopsy was canceled. It is recommended that th e patient have an ultrasound in 3 months for re-evaluation. The patient was instructed to notify her physician if the palpable area enlarges prior to that. Ultrasound can then be performed earlier. BI-RADS category 3, probably benign. BI-RAD: 3 ResultCode: PB3
== END ==
LOC: DS 09:39
PROVIDERS: ATTEND Clinical Nurse Specialist Women's Health
DX: N63.10 Unspecified lump in the right breast, unspecified quadrant (principal); N63.11 Unspecified lump in the right breast, upper outer quadrant; Z53.8 Procedure and treatment not carried out for other reasons
CPT/HCPCS: 76642